=== PATIENT | female | born 1980 | race Caucasian/White ===

== ENCOUNTER 2018-05-20 15:51 | Emergency (ER) | payer OTHER ==
[~2018-05-20] VITALS: Ht 172.7 cm; Wt 90.7 kg
--- NOTE | 2018-05-20 15:59 | NUR ---
PATIENT BROUGHT IN BY RESCUE FOR ALCOHOL INTOXICATION.
--- NOTE | 2018-05-20 16:03 | NUR ---
PATIENT IN ROOM WAITING TO BE SEEN B ER DOCTOR.
[2018-05-20 16:20] LABS: BASOPHILS # (AUTO) 0.1 K/uL (0.0-8.0); BASOPHILS % (AUTO) 0.7 % (0.0-2.0); EOSINOPHILS # (AUTO) 0.2 K/uL (0.0-0.7); EOSINOPHILS % (AUTO) 2.2 % (0.0-7.0); HEMATOCRIT 42.3 % (31.2-41.9); HEMOGLOBIN 13.9 g/dL (10.9-14.3); LYMPHOCYTES # (AUTO) 2.6 K/uL (20.0-40.0); LYMPHOCYTES % (AUTO) 30.7 % (20.5-51.5); MEAN CORPUSCULAR HEMOGLOBIN 29.4 uug (24.7-32.8); MEAN CORPUSCULAR HGB CONC 33 g/dL (32.3-35.6); MEAN CORPUSCULAR VOLUME 89.3 fL (75.5-95.3); MONOCYTES # (AUTO) 0.4 K/uL (2.0-10.0); MONOCYTES % (AUTO) 5.1 % (0.0-11.0); NEUTROPHILS # (AUTO) 5.3 K/uL (1.8-8.9); NEUTROPHILS % (AUTO) 61.3 % (38.5-71.5); PLATELET COUNT (AUTO) 209 K/uL (179-408); RED BLOOD CELL COUNT(AUTO) 4.74 MIL/uL (3.63-4.92); WHITE BLOOD COUNT (AUTO) 8.6 K/uL (3.8-11.8)
[2018-05-20 16:31] LABS: ALANINE AMINOTRANSFERASE 26 U/L (14-59); ALKALINE PHOSPHATASE 51 U/L (50-136); ASPARTATE AMINOTRANSFERASE 11 U/L (15-37); BILIRUBIN,DIRECT 0.1 mg/dL (0.0-0.2); BILIRUBIN,TOTAL 0.1 mg/dL (0.2-1.0); CARBON DIOXIDE 22 mmol/L (21-32); CHLORIDE 108 mmol/L (98-107); CREATININE 0.9 mg/dL (0.6-1.3); GLUCOSE 98 mg/dL (74-106); POTASSIUM 3.8 mmol/L (3.5-5.1); UREA NITROGEN, BLOOD 18 mg/dL (7-18)
--- NOTE | 2018-05-20 16:31 | NUR ---
ONCE PATIENT IS CLEARED FOR DISCHARGE [facility] IS AVAILABLE TO TAKE PATIENT UPON DISCHARGE TO THEIR OWN INPATIENT FACILITY IF SHE AGREES. CONTACT INFO IS [facility] [phone] FOR ARRANGEMENT TO SENIOR MAINTENANCE MACHINIST ONCE DISCHARGED FROM ER.
[2018-05-20 16:34] LABS: ACETAMINOPHEN < 2.0 ug/mL (10-30)
[2018-05-20 16:53] LABS: ETHANOL 304 MG/DL (0-0)
[2018-05-20 17:00] LABS: THYROID STIMULATING HORMONE 1.416 mIU/mL (0.358-3.740)
--- NOTE | 2018-05-20 17:45 | NUR ---
CALLED [facility] PATIENT IS BEING DISCHARGED AND READY TO BE PICKED UP. LEFT MESSAGE. PATIENT GIVEN DISCHARGE PAPERWORK.
== END 2018-05-20 18:00 | disposition home or self-care (01) ==
LOC: ER 15:51
DX: F10.129 Alcohol abuse with intoxication, unspecified (principal); Y90.8 Blood alcohol level of 240 mg/100 ml or more
CPT/HCPCS: 36415; 70450; 80048; 80076; 82140; 84443; 84484; 84702; 85025; 85730; 99284; G0480 ×2; G0481; 70030-TC; A4663